=== PATIENT | male | born 1970 | race Caucasian/White ===

== ENCOUNTER 2019-01-12 09:19 | Emergency (ER) | payer SELFPAY | END 2019-01-12 09:46 | disposition left against medical advice (07) | LOC: ERS 09:19 | DX: Z53.21 Procedure and treatment not carried out due to patient leaving prior to being seen by health care provider (principal) ==

== ENCOUNTER 2019-01-12 11:40 | Emergency (ER) | payer OTHER, SELFPAY ==
--- NOTE | 2019-01-12 14:23 | CT ---
BRAIN CT WITHOUT IV CONTRAST: Date: 01/12/19 HISTORY: Concussion after head injury on 12/12/18. COMPARISON: Brain MRI dated 08/17/[address] dated 09/15/10. FINDINGS: Minimal motion artifact. No mass or midline shift. No intra or extra-axial hemorrhage. Minimal sinus mucosal disease. The mastoids are clear. IMPRESSION: No acute intrathoracic disease. Sinus mucosal disease. POS: [facility]
== END 2019-01-12 13:47 | disposition home or self-care (01) ==
LOC: ERS 11:40
DX: R51 Headache (principal); F32.9 Major depressive disorder, single episode, unspecified; F17.220 Nicotine dependence, chewing tobacco, uncomplicated; Z87.442 Personal history of urinary calculi; W20.8XXA Other cause of strike by thrown, projected or falling object, initial encounter
CPT/HCPCS: 70450

== ENCOUNTER 2019-04-29 13:09 | Outpatient (CLI) | payer OTHER ==
--- NOTE | 2019-04-29 15:09 | MRI ---
MRI Upper Ext Jt Lt WO Con History: S 46.912D strain of left shoulder Comparison: None. Findings: Biceps tendon: Mild intra-articular biceps tendinosis. No significant extra articular bicep s tenosynovitis. Labrum: Tear of the superior labrum anterior and posterior to the biceps labral expansion. Rotator cuff: Mild tendinosis and interstitial tearing of the subscapularis. High-grade bursal surfac e tear of the supraspinatus tendon at the footprint, approximately 75% thickness, with a few full-thickness small perforations. Minimal gap. There is interstitial delamination along the anterior fibers of the infraspinatus tendon with a myotendinous cyst. Bones: Type II acromion. Mild degenerative disease of the acromioclavicular joint. Normal glenoid ledy neno. No osseous contusion. Muscles: Muscle signal and bulk is normal. Impression: 1. High-grade bursal surface tearing, greater than 75%, the entirety of the supraspinatus tendon with multiple full-thickness perforations. 2. 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 3. Superior labral tear anterior and posterior to the biceps labral expansion..
--- NOTE | 2019-04-29 15:41 | MRI ---
BRAIN MRI WITH AND WITHOUT CONTRAST: 04/29/19 CLINICAL HISTORY: Head injury, pain. FINDINGS: Noncontrast brain MRI performed as the patient did decline contrast administration. There is no ventriculomegaly, mass effect or midline shift. No parenchymal hemorrhagic susceptibility or evidence of acute territorial infarction. The visualized skull base flow voids are patent. There is scattered paranasal sinus mucosal thickening. Sellar contents are unremarkable. IMPRESSION: No acute intracranial abnormality. Incidental note of scattered inflammatory paranasal sinus mucosal thickening and probable retention c yst formation. Recommend clinical correlation. POS: [facility]
== END 2019-04-29 13:10 | disposition home or self-care (01) ==
LOC: BICMRI 13:09 → TBSIIMAG 13:10
PROVIDERS: ATTEND Psychiatry & Neurology Neurology
DX: S46.912D Strain of unspecified muscle, fascia and tendon at shoulder and upper arm level, left arm, subsequent encounter (principal); S06.0X0D Concussion without loss of consciousness, subsequent encounter; J32.8 Other chronic sinusitis; M75.102 Unspecified rotator cuff tear or rupture of left shoulder, not specified as traumatic; S43.492A Other sprain of left shoulder joint, initial encounter
CPT/HCPCS: 70551; 70553

== ENCOUNTER 2019-06-22 20:30 | Outpatient (CLI) | payer OTHER | END 2019-06-22 20:31 | disposition home or self-care (01) | LOC: SLEEPLAB 20:30 | PROVIDERS: ATTEND Psychiatry & Neurology Neurology | DX: G47.33 Obstructive sleep apnea (adult) (pediatric) (principal); G47.9 Sleep disorder, unspecified; R06.83 Snoring; G47.00 Insomnia, unspecified; G47.10 Hypersomnia, unspecified; F32.9 Major depressive disorder, single episode, unspecified; G43.909 Migraine, unspecified, not intractable, without status migrainosus; R56.9 Unspecified convulsions; F41.0 Panic disorder [episodic paroxysmal anxiety] | CPT/HCPCS: 95811 ==

== ENCOUNTER 2025-08-19 06:02 | Emergency (ER) | payer MEDICARE, MEDICAID | END 2025-08-19 07:30 | disposition left against medical advice (07) | LOC: ERS 06:02 | DX: S81.811A Laceration without foreign body, right lower leg, initial encounter (principal); S30.811A Abrasion of abdominal wall, initial encounter; S00.211A Abrasion of right eyelid and periocular area, initial encounter; M25.561 Pain in right knee; V89.0XXA Person injured in unspecified motor-vehicle accident, nontraffic, initial encounter | CPT/HCPCS: 71045; 72170; 73564; 73590; 94760; G0390 ==